=== PATIENT | male | born 1965 | race Caucasian/White ===

== ENCOUNTER 2017-05-04 09:45 | Emergency (ER) | payer BC, OTHER ==
[2017-05-04 10:05] VITALS: TEMP 97.8
--- NOTE | 2017-05-04 10:10 | ED.PDOC ---
History of Present Illness - General Chief Complaint: Back Pain or Injury Stated Complaint: right mid back pain, low back pain Time Seen by Provider: 05/04/17 10:07 Source: patient, family Additional Information: 51 YEAR OLD WHITE MALE COMPLAINTS OF PAIN IN THE RIGHT FLANK AND BACK LAST FEW DAYS IT HAS BEEN INTERMITTENT SHARP NO FACTORS TO TRIGGER RATHER SPONTANEOUS NO ASSOCIATED FEVER CHILLS NO RADIATION TO THE TESTIS NO NAUSEA VOMITING HE HAS NO MAJOR MEDICAL ILLNESS NO HISTORY OF TRAUMA NO HEMATURIA - History of Present Illness Timing/Duration: days Quality/Severity: moderate Method of Injury/Prior Injury: unknown Associated Symptoms: denies symptoms Allergies/Adverse Reactions: Allergies NO KNOWN ALLERGY Allergy (Verified 05/04/17 10:02) Home Medications: Ambulatory Orders Methocarbamol [Robaxin] 750 mg PO Q8HRS #30 tab 05/04/17 Naproxen [Naprosyn] 500 mg PO Q8HRS #30 tab 05/04/17 Review of Systems - Review of Systems Constitutional: States: no symptoms reported EENTM: States: no symptoms reported Respiratory: States: no symptoms reported Cardiology: States: no symptoms reported Gastrointestinal/Abdominal: States: no symptoms reported Genitourinary: States: no symptoms reported Musculoskeletal: States: no symptoms reported Skin: States: no symptoms reported Neurological: States: no symptoms reported Endocrine: States: no symptoms reported Hematologic/Lymphatic: States: no symptoms reported Past Medical History (General) - Patient Medical History Surgical History: no surgical history - Vaccination History Hx Influenza Vaccination: No Hx Pneumococcal Vaccination: No - Social History Hx Tobacco Use: No Hx Alcohol Use: No Hx Substance Use: No Hx Substance Use Treatment: No Hx Depression: No - Female History Patient is a Female of Child Bearing Age (10 -59 yrs old): No Family Medical History - Family History Mother Family History: No Known Physical Exam - Physical Exam General Appearance: Alert, Comfortable Eyes, Ears, Nose, Throat Exam: PERRL/EOMI Neck Exam: non-tender, full range of motion, normal alignment, normal inspection Cardiovascular/Respiratory: regular rate, rhythm, normal peripheral pulses, no JVD, normal breath sounds, no respiratory distress Peripheral Pulses: radial,right: 2+, radial,left: 2+, femoral,right: 2+, dorsalis pedis,right: 2+, dorsalis pedis,left: 2+ Gastrointestinal/Abdominal: normal bowel sounds, non tender, soft, no organomegaly, no pulsatile mass Back Exam: normal inspection, no CVA tenderness Extremity Exam: no evidence of injury, normal range of motion Neurologic: appliquer zigzag II-XII nml as tested, no motor/sensory deficits Skin Exam: normal color, warm/dry Progress - Results/Orders Results/Orders: Laboratory Tests 05/04/17 05/04/17 05/04/17 10:16 10:29 10:29 WBC 8.9 RBC 4.97 Hgb 14.9 Hct 43.5 MCV 87.6 MCH 30.0 MCHC 34.3 RDW 12.3 Plt Count 358 MPV 6.5 L Absolute Neuts (auto) 5.30 Absolute Lymphs (auto) 2.30 Absolute Monos (auto) 0.80 Absolute Eos (auto) 0.50 H Absolute Basos (auto) 0.10 Neutrophils % 59.5 Lymphocytes % 25.3 Monocytes % 9.2 H Eosinophils % 5.0 Basophils % 1.0 Sodium 138 Potassium 3.7 Chloride 104 Carbon Dioxide 26 Anion Gap 11.7 L BUN 10 Creatinine 0.98 BUN/Creatinine Ratio 10.2 Random Glucose 90 Serum Osmolality 274.3 L Calcium 9.3 Urine Color Yellow Urine Appearance Clear Urine pH 6.5 Ur Specific Aldie 1.010 Urine Protein Negative Urine Glucose (UA) Negative Urine Ketones Negative Urine Blood Negative Urine Nitrite Negative Urine Bilirubin Negative Urine Urobilinogen 0.2 Ur Leukocyte Esterase Negative Urine RBC 0 Urine WBC 0 Ur Epithelial Cells 0 Urine Bacteria 0 Departure - Departure Clinical Impression: Lumbago without sciatica Time of Disposition: 10:58 Disposition: Discharge to Home or Self Care Condition: Good Departure Forms: ED Discharge - Pt. Copy, Patient Portal Self Enrollment Instructions: DI for Low Back Pain Activity: increase activity as tolerated Prescriptions: Methocarbamol [Robaxin] 750 mg PO Q8HRS #30 tab Naproxen [Naprosyn] 500 mg PO Q8HRS #30 tab Home Medications: Ambulatory Orders Methocarbamol [Robaxin] 750 mg PO Q8HRS #30 tab 05/04/17 Naproxen [Naprosyn] 500 mg PO Q8HRS #30 tab 05/04/17
[2017-05-04] MEDS ORDERED: KETOROLAC TROMETHAMINE INJ 30 MG/ML VIAL IV ONE (10:12)
--- NOTE | 2017-05-04 10:38 | CT ---
EXAM DESCRIPTION: Abdoment/Pelvis w/o Contrast CLINICAL HISTORY: STONE STUDY flank pain COMPARISON: None. TECHNIQUE: Noncontrast transaxial CT images of the abdomen and pelvis are obtained. This exam was performed according to our departmental dose-optimization program, which includes automated exposure control, adjustment of the mA and/or kV according to patient size and/or use of iterative reconstruction technique . FINDINGS: Visualized lung bases are unremarkable. Given the limitations of a noncontrast exam the liver, spleen, adrenal glands, and gallbladder are unremarkable. Mild fatty replacement of the pancreas is seen. Abdominal vasculature is unremarkable. Kidneys show no abnormal calcifications. No ureteral calcification or obstruction is seen. Urinary bladder is somewhat contracted and unremarkable. The prostate is unremarkable. The appendix is retrocecal and within normal limits. No small bowel obstruction is seen. The colon is unremarkable. No significant diverticular disease is seen. No pathologic lymphadenopathy. No abnormal fluid collection or free intraperitoneal air is seen. The osseous structures show no aggressive bony lesions. IMPRESSION: No discrete nephrolithiasis is seen. No ureteral obstruction. No acute findings on noncontrast CT of the abdomen and pelvis. Electronically signed by: Riccardo Diaz MD 05/04/2017 10:37 AM [employer]
[2017-05-04 11:11] VITALS: BP 156/100; O2SAT 96
== END 2017-05-04 11:10 | disposition home or self-care (01) ==
LOC: ER 09:45
DX: M54.5 Low back pain (principal)
CPT/HCPCS: 36415; 74176; 80048; 81001; 85025; J1885

== ENCOUNTER → 2018-12-15 | Outpatient (CLI) | payer OTHER | LOC: NM 11:10 | PROVIDERS: ATTEND Family Medicine | DX: R07.9 Chest pain, unspecified (principal) ==